=== PATIENT | female | born 1955 | race Caucasian/White ===

== ENCOUNTER → 2017-07-07 | Outpatient (CLI) | payer OTHER ==
[~2017-07-07] MED LIST: ASPIR-LOW81 MG PO; ASPIRIN81 M2 PO; Advair HFA 115/21 IH; Aspirin E.C. PO; FLEXERIL5 MG PO; HYCODAN SYRUP480 ML PO; HYDROCODON-ACE1 EAC7 PO; HYZAAR 100-11 TABLET PO; MAGNESIUM250 MG PO; MICARDIS HCT PO; MICARDIS HCT1 TABLET PO; MOBIC15 MG PO; Mag-Ox PO; NEURONTIN300 MG PO; NEURONTIN600 MG PO; NORCO 5/3251 TABLET PO; Neurontin PO; OCUVITE TABLET1 EACH PO; PERCOCET 10/1 TABLET PO; POTASSIUM-9999 MG PO; PREDNISONE20 MG PO; PROAIR RESPICL90 MCG IH; PROVENTIL HFA6.7 GM IH; Percocet 5/325,Endoc PO; Proventil,Ventolin H IH; SIMVASTATIN40 MG PO; SINGULAIR10 MG PO; TRAZODONE HCL50 MG PO; Tricor PO; Tylenol Extra Streng PO; VALIUM5 MG PO; VITAMIN D2000 UNI1 PO; Valium PO; ZETIA10 MG PO; ZOCOR40 MG PO; ZOFRAN4 MG PO; ZYRTEC10 M3 PO
== END | disposition home or self-care (01) ==
LOC: CDC 15:40
DX: I10 Essential (primary) hypertension (principal); K43.9 Ventral hernia without obstruction or gangrene
CPT/HCPCS: 93000

== ENCOUNTER 2017-07-15 07:22 | Day surgery (SDC) | payer OTHER ==
[~2017-07-15] VITALS: Ht 162.6 cm; Wt 85.3 kg
[~2017-07-15 07:22] MED LIST changes: -POTASSIUM-9999 MG PO; -VITAMIN D2000 UNI1 PO
[2017-07-15] MEDS ORDERED: POTASSIUM-9999 MG PO (07:52)
[2017-07-15] MEDS ORDERED: VITAMIN D2000 UNI1 PO (07:53)
[2017-07-15 07:54] VITALS: BP 134/60
[2017-07-15 10:47] VITALS: BP 129/69
[2017-07-15 11:54] VITALS: BP 134/59
== END 2017-07-15 11:59 | disposition home or self-care (01) ==
LOC: SDC 07:22
PROC: 0TJ98ZZ Inspection of Ureter, Via Natural or Artificial Opening Endoscopic (ICD-10-PCS; principal; 2017-07-15)
DX: N13.30 Unspecified hydronephrosis (principal); N39.3 Stress incontinence (female) (male); I10 Essential (primary) hypertension; J44.9 Chronic obstructive pulmonary disease, unspecified; F17.210 Nicotine dependence, cigarettes, uncomplicated; Z79.82 Long term (current) use of aspirin; Z82.49 Family history of ischemic heart disease and other diseases of the circulatory system; Z83.3 Family history of diabetes mellitus; K21.9 Gastro-esophageal reflux disease without esophagitis
CPT/HCPCS: 74420; C1758; J0690; J1100; J1580; J2250; J2405; J3010

== ENCOUNTER 2017-07-21 09:04 | Day surgery (SDC) | payer OTHER ==
[~2017-07-21] VITALS: Ht 162.6 cm; Wt 83.5 kg
[~2017-07-21 09:04] MED LIST changes: +POTASSIUM-9999 MG PO; +VITAMIN D2000 UNI1 PO
[2017-07-21 09:43] VITALS: BP 119/63
[2017-07-21] MEDS ORDERED: NORCO 5/3251 TABLET PO (14:31)
[2017-07-21 16:20] VITALS: BP 110/60
[2017-07-21 17:12] VITALS: BP 111/55
[2017-07-21 17:47] VITALS: BP 127/66
== END 2017-07-21 17:53 | disposition home or self-care (01) ==
LOC: SDC
PROC: 0WQF4ZZ Repair Abdominal Wall, Percutaneous Endoscopic Approach (ICD-10-PCS; principal; 2017-07-21)
DX: K43.2 Incisional hernia without obstruction or gangrene (principal); K66.0 Peritoneal adhesions (postprocedural) (postinfection); I10 Essential (primary) hypertension; E11.9 Type 2 diabetes mellitus without complications; J44.9 Chronic obstructive pulmonary disease, unspecified; K21.9 Gastro-esophageal reflux disease without esophagitis; F41.9 Anxiety disorder, unspecified; G43.909 Migraine, unspecified, not intractable, without status migrainosus; Q05.9 Spina bifida, unspecified; F17.200 Nicotine dependence, unspecified, uncomplicated; Z79.82 Long term (current) use of aspirin; Z82.49 Family history of ischemic heart disease and other diseases of the circulatory system; Z83.49 Family history of other endocrine, nutritional and metabolic diseases; Z84.1 Family history of disorders of kidney and ureter; Z80.8 Family history of malignant neoplasm of other organs or systems; Z83.3 Family history of diabetes mellitus; Z82.0 Family history of epilepsy and other diseases of the nervous system; Z82.5 Family history of asthma and other chronic lower respiratory diseases
CPT/HCPCS: C1781; J0330; J0690; J1100; J1170; J2250; J2405; J3010